=== PATIENT | male | born 1985 | race Caucasian/White ===

== ENCOUNTER → 2017-09-03 | Outpatient (CLI) | payer OTHER ==
--- NOTE | 2017-09-05 12:37 | US ---
EXAMINATION TYPE: US liver DATE OF EXAM: 09/03/2017 COMPARISON: NONE CLINICAL HISTORY: R74.8 Abnormal levels of other serum enzymes. Elevated liver enzymes EXAM MEASUREMENTS: Liver Length: 16.7 cm Gallbladder Wall: 0.2 cm CBD: 0.3 cm Right Kidney: 11.4 x 6.6 x 4.7 cm Difficult and limited study due to patient body habitus Pancreas: visualized portions wnl, tail obscured by overlying midline bowel gas Liver: Increased attenuation, increased echogenicity throughout heterogeneously, decreased visualiza tion of vessels suggestive of fatty infiltrate, 3.8 x 1.9 x 2.6cm hypoechoic area adjacent to gallbla dder, possible focal sparing. The finding of hepatic heterogeneity limits evaluation for hepatic ma sses. Gallbladder: wnl Evidence for sonographic Hayes's sign: no CBD: visualized portions wnl, limited by overlying bowel gas Right Kidney: wnl IMPRESSION: 1. Hyperechoic and heterogenous hepatic echotexture most commonly related to underlying hepatic steat osis appearing moderate in degree. There is a geographic area of hypoechogenicity in segment IVb most commonly related to focal fatty sparing although further evaluation with MR utilizing in and out of phase imaging could be performed for confirmation. 2. No sonographic evidence of cholelithiasis or acute cholecystitis.
== END | disposition home or self-care (01) ==
LOC: RADUSWWP 15:15
PROVIDERS: ATTEND Family Medicine
DX: R74.8 Abnormal levels of other serum enzymes (principal)
CPT/HCPCS: 76705

== ENCOUNTER → 2018-01-13 | Outpatient (CLI) | payer OTHER ==
--- NOTE | 2018-01-13 15:56 | US ---
EXAMINATION TYPE: US scrotum with doppler. TECHNIQUE: Grayscale and color Doppler Duplex imaging performed of the scrotum. DATE OF EXAM: 01/13/2018 COMPARISON: NONE CLINICAL HISTORY: 32-year-old male N50.89 disorder of male genital organs. Intermittent pain from one side to the other over the past week, no swelling, no injury FINDINGS: TESTICLES: Right Testicle: 5.1 x 2.8 x 3.5 cm Left Testicle: 4.9 x 3.4 x 3.1 cm Relatively symmetric size with normal homogeneous echotexture. Satisfactory arterial and venous flow on both sides. EPIDIDYMIS HEAD: Right Epididymis: 1.2 cm Left Epididymis: 1.0 cm Presence of hydroceles: mild bilateral Presence of varicoceles: no IMPRESSION: 1. No sonographic evidence for testicular torsion or epididymoorchitis. 2. Small bilateral hydroceles.
== END | disposition home or self-care (01) ==
LOC: RADUSWWP 15:16
PROVIDERS: ATTEND Family Medicine
DX: N43.3 Hydrocele, unspecified (principal)
CPT/HCPCS: 76870; 93975